=== PATIENT | male | born 2000 | race Caucasian/White ===

== ENCOUNTER 2019-08-02 09:38 | Emergency (ER) | payer OTHER ==
--- OUTSIDE RECORDS SUMMARY | 2019-08-02 10:10 | XMS REPORT | Continuity of Care Document ---
:2000 External Reference #:[id number] Author Name Gladys Reece DO (transmitted by agent of provider Tosha Balbuena) Address [address] [place] [id number] Care Team Providers Name Role Phone Gladys Reece DO - Hospitalist Care Team Information Aircraft Machinist [phone] Problems Description No Information Available Social History Type Date Description Comments Sex Unknown Tobacco Use Start: Unknown Patient has never smoked Smoking Status Reviewed: 06/15/19 Patient has never smoked Allergies, Adverse Reactions, Alerts Active Allergies Reaction Severity Comments Date Doxycycline Hives 06/15/2019 Inactive Allergies NKDA 06/15/2019 Medications Description No Information Available Immunizations Description No Information Available Vital Signs Date Vital Result Comment 06/15/2019 9:16am Height 68 inches 5'8" Weight 234.00 lb Heart Rate 83 /min BP Systolic Sitting 134 mmHg BP Diastolic Sitting 97 mmHg Body Temperature 98.7 F O2 % BldC Oximetry 97 % BMI (Body Mass Index) 35.6 kg/m2 Results Description No Information Available Procedures Description No Information Available Medical Devices Description No Information Available Encounters Type Date Location Provider Dx Diagnosis Office Visit 06/15/2019 [employer] [facility] Gladys Reece, F10.10 Alcohol abuse, 9:20a Medicine - Suite DO uncomplicated R F41.1 Generalized anxiety disorder K21.9 Gastro-esophageal reflux disease without esophagitis E66.3 Overweight Assessments Date Code Description Provider 06/15/2019 F10.10 Alcohol abuse, uncomplicated Gladys Reece DO 06/15/2019 F41.1 Generalized anxiety disorder Gladys Reece DO 06/15/2019 K21.9 Gastro-esophageal reflux disease without Gladys Reece DO esophagitis 06/15/2019 E66.3 Overweight Gladys Reece DO Plan of Treatment 06/15/2019 - Gladys Senner, DOF10.10 Alcohol abuse, uncomplicatedComments: There are lots of resources in [place] if you wish you pursue them--in addition to AA, there is [facility], [facility] (alcohol and drug [facility])Binge drinking is defined as 5 or more drinks in a dayFollow up:this viipbzD30.1 Generalized anxiety disorderComments:Ask for a referral for a psychiatrist when you get back to school; I think it's a good idea to get established with someone and restart [id number] Gastro-esophageal reflux disease without esophagitisComments: alcohol can increase gastric reflux; see if you notice a difference when you cut back on alcohol weight loss will improve it as wellE66.3 Overweight Functional Status Description No Information Available Mental Status Description No Information Available Referrals Description No Information Available
--- NOTE | 2019-08-02 10:23 | ED ---
Influenza-Like Illness - HPI Summary HPI Summary: 19-year-old otherwise healthy male who has been under some quarantine with his parents for the past 6 weeks presenting to the ED with a concern for a fever at 99.8 as well as a wet cough which only lasted approximately 3-4 hours. He denies any chest pain or shortness of breath. He did have a small amount of diarrhea yesterday, but admits to alcohol usage the night before. He states he feels well now. He denies any sweats or chills. He takes no medications, denies any allergies. He states he has been eating and drinking okay. No nausea or vomiting. Patient requesting Covid testing. Denies any known sick contacts. - History of Current Complaint Chief Complaint: EDGeneral Time Seen by Provider: 08/02/19 10:03 Hx Obtained From: Patient Onset/Duration: Sudden Onset Severity: Moderate Associated Signs & Symptoms: Fever - 99.8, T Max, Cough - Risk Factors Influenza Risk Factors: Negative - Allergy/Home Medications Home Medications: Home Medications NK [No Home Medications Reported] 08/02/19 [History Confirmed 08/02/19] PMH/Surg Hx/FS Hx/Imm Hx Previously Healthy: Yes - Immunization History Hx Pertussis Vaccination: No Immunizations Up to Date: Yes Infectious Disease History: No Infectious Disease History: Denies: Traveled Outside the [place] in Last 30 Days - Social History Occupation: Employed Part-time Alcohol Use: Occasionally Hx Substance Use: No Substance Use Type: Reports: None Hx Tobacco Use: No Smoking Status (MU): Never Smoked Tobacco Review of Systems Positive: Fever. Negative: Chills, Fatigue, Skin Diaphoresis Negative: Dental Pain, Sore Throat Negative: Palpitations, Chest Pain Positive: Cough Negative: Arthralgia, Myalgia Skin: Negative Neurological/Mental Status: Negative All Other Systems Reviewed And Are Negative: Yes Physical Exam Triage Information Reviewed: Yes Vital Signs On Initial Exam: Initial Vitals Temp Pulse Resp BP Pulse Ox 98 F 99 16 167/104 100 08/02/19 09:58 08/02/19 09:58 08/02/19 09:58 08/02/19 09:58 08/02/19 09:58 Vital Signs Reviewed: Yes Appearance: Positive: Well-Appearing, Well-Nourished Skin: Positive: Warm, Skin Color Reflects Adequate Perfusion Head/Face: Positive: Normal Head/Face Inspection Eyes: Positive: EOMI, RASHAAD, Conjunctiva Clear Neck: Positive: Supple, No Lymphadenopathy Respiratory/Lung Sounds: Positive: Clear to Auscultation, Breath Sounds Present Cardiovascular: Positive: RRR, Pulses are Symmetrical in both Upper and Lower Extremities Musculoskeletal: Positive: Normal, Strength/ROM Intact Neurological: Positive: Speech Normal Psychiatric: Positive: Normal, Affect/Mood Appropriate AVPU Assessment: Alert Procedures - Sedation Patient Received Moderate/Deep Sedation with Procedure: No Diagnostics - Vital Signs Vital Signs Temp Pulse Resp BP Pulse Ox 08/02/19 09:58 98 F 99 16 167/104 100 - Laboratory Lab Statement: Any lab studies that have been ordered have been reviewed, and results considered in the medical decision making process. Flu Symptom Course/Dx - Course Course Of Treatment: On arrival into the ED, the patient appears well. He is nondiaphoretic and nontoxic appearing. His vital signs are stable and he is afebrile. Patient denies any chest pain or shortness of breath. Requesting COVID testing. Lungs CTA. RRR. No LAD bilaterally. COVID test pending. - Diagnoses Differential Diagnosis/HQI/PQRI: Positive: Bronchitis, Upper Respiratory Infection Provider Diagnoses: Cough Critical Care Statement: Critical care time is provided exclusive of any time spent performing procedures. Discharge ED - Sign-Out/Discharge Documenting (check all that apply): Patient Departure - Discharge Plan Condition: Stable Disposition: HOME Referrals: Gladys Reece DO [Primary Care Provider] - Additional Instructions: You were seen in the emergency department for coronavirus rule out. T The department of health will contact you within 48-72 hours. Due to the pandemic, you should stay in your house and self-quarantine. See the separate quarantine paper for further instructions. You should wear a mask if you're outside of your personal room. We encourage handwashing as well as limited contact with other people including the elderly and the immunocompromised. If any studies were not completed at the time of discharge you will be called with the relevant results. Return to the emergency department for severe trouble breathing, worsening or concerning symptoms. It was a pleasure taking care of you today. - Billing Disposition and Condition Condition: STABLE Disposition: Home
[2019-08-02 10:37] VITALS: BP 143/96
== END 2019-08-02 10:35 | disposition home or self-care (01) ==
LOC: ED 09:38
DX: R50.9 Fever, unspecified (principal); R05 Cough; Z20.828 Contact with and (suspected) exposure to other viral communicable diseases
CPT/HCPCS: 87635; 99282; U0003